=== PATIENT | male | born 1975 | race Two or more races ===

== ENCOUNTER 2022-05-06 15:23 | Emergency (ER) | payer OTHER ==
[~2022-05-06] VITALS: Ht 175.3 cm; Wt 74.8 kg
--- NOTE | 2022-05-06 16:00 | NUR ---
RECEIVED PT 46 YRS MALE C/O walking in c/o chest pain sarted at 12 noon awake and alert
--- NOTE | 2022-05-06 16:30 | NUR ---
SEEN BY DR. MAYES
--- NOTE | 2022-05-06 16:46 | NUR ---
BLOOD DROW BY LAB TACH
[2022-05-06 16:53] LABS: BASOPHILS % (AUTO) 1.1 % (0.0-2.0); EOSINOPHILS % (AUTO) 6.8 % (0.0-6.0); HEMATOCRIT 38 % (39-51); HEMOGLOBIN 12.6 g/dL (13.5-17.5); LYMPHOCYTES # (AUTO) 1.2 K/uL (0.8-4.8); LYMPHOCYTES % (AUTO) 28.9 % (20.0-44.0); MEAN CORPUSCULAR HGB CONC 33 g/dl (31.0-36.0); MEAN CORPUSCULAR VOLUME 97 fL (80-96); MONOCYTES # (AUTO) 0.3 K/uL (0.1-1.30); MONOCYTES % (AUTO) 6.6 % (2.0-12.0); NEUTROPHILS # (AUTO) 2.4 K/uL (1.8-8.9); NEUTROPHILS % (AUTO) 56.6 % (43.0-81.0); PLATELET COUNT (AUTO) 186 K/uL (150-450); RED BLOOD CELL COUNT(AUTO) 3.93 MIL/uL (4.5-6.0); WHITE BLOOD COUNT (AUTO) 4.2 K/uL (4.3-11.0)
[2022-05-06 17:15] LABS: CALCIUM, SERUM 8.6 mg/dL (8.5-10.1); CARBON DIOXIDE 30 mmol/L (21-32); CHLORIDE 106 mmol/L (98-107); CREATININE 0.8 mg/dL (0.6-1.3); GLUCOSE 99 mg/dL (74-106); POTASSIUM 3.9 mmol/L (3.5-5.1); SODIUM SERUM 141 mmol/L (136-145); UREA NITROGEN, BLOOD 9 mg/dL (7-18)
--- NOTE | 2022-05-06 17:40 | NUR ---
NO SOB OR DISCOMFORT NOTED
--- NOTE | 2022-05-06 18:00 | NUR ---
DINESES CHEST PAIN NO SOB
--- NOTE | 2022-05-06 19:42 | NUR ---
HAND OFF SEPTEMBER RN
[2022-05-06] MEDS ORDERED: IBUP-1955 PO (19:50)
--- NOTE | 2022-05-06 20:02 | NUR ---
Patient discharged to home in stable condition. Written and verbal after care instructions given. Patient verbalizes understanding of instruction. Pt ambulatory with a steady gait
[2022-05-06 20:03] VITALS: BP 122/77
== END 2022-05-06 20:04 | disposition home or self-care (01) ==
LOC: ER 15:49
DX: R07.89 Other chest pain (principal)
CPT/HCPCS: 36415; 71045-TC; 80048-TC; 84484-TC; 85025-TC